=== PATIENT | female | born 1995 | race Two or more races ===

== ENCOUNTER 2018-09-21 10:24 | Day surgery (SDC) | payer OTHER ==
[2018-09-15 15:29] VITALS: BMI 28.5
--- NOTE | 2018-09-21 07:07 | HP ---
History & Physical Update - History History: No Change - Physical Physical: No Change - Assessment Assessment: No Change - Plan Plan: No Change (C/o LBP with LLE radiation.)
[2018-09-21] MEDS ORDERED: CEFAZOLIN 2 GM in DEXTROSE 5%-WATER - 100 ML IVPB ONE (10:35)
[2018-09-21] MEDS ORDERED: oxyCODONE HCL 10 MG SUSTAINED ACTING TABLET PO STA (10:35)
[2018-09-21] MEDS ORDERED: DEXAMETHASONE SOD PHOSPHATE/PF 10 MG/ML SDV ONE (13:48)
[2018-09-21] MEDS ORDERED: MIDAZOLAM HCL 2 MG/2 ML SINGLE DOSE VIAL ONE ×3 (13:48→15:26)
[2018-09-21] MEDS ORDERED: BUPIVACAINE HCL/PF (5 MG/ML) 30 ML VIAL IJ ONE (13:48)
[2018-09-21] MEDS ORDERED: LIDOCAINE 1%/EPI 1:100000 (20 ML MULTI DOSE VIAL) ONE (14:10)
[2018-09-21] MEDS ORDERED: methylPREDNISolone ACET (DEPO) 40 MG/1 ML VIAL ONE (14:10)
[2018-09-21] MEDS ORDERED: THROMBIN (BOVINE) 5,000 UNIT VIAL TP ONE ×2 (14:10→15:35)
[2018-09-21] MEDS ORDERED: ONDANSETRON 4 MG/2 ML VIAL ONE (14:18)
[2018-09-21] MEDS ORDERED: DEXAMETHASONE SOD PHOSPHATE 4 MG/1 ML VIAL ONE (14:18)
[2018-09-21] MEDS ORDERED: ceFAZolin SODIUM 1 GM VIAL ONE (14:18)
[2018-09-21] MEDS ORDERED: oxyCODONE HCL 5 MG TABLET PO PRN ×2 (16:03)
[2018-09-21] MEDS ORDERED: PROMETHAZINE HCL 25 MG/1 ML VIAL IVPUSH PRN (16:03)
[2018-09-21] MEDS ORDERED: ONDANSETRON 4 MG/2 ML VIAL IVPUSH PRN (16:03)
--- NOTE | 2018-09-21 16:12 | OP ---
Operative Note - Note: Operative Date: 09/21/18 Pre-Operative Diagnosis: L4/5 HNP, radiculopathy, stenosis Operation: L4/5 laminectomy, discectomy Post-Operative Diagnosis: Same as Pre-op Surgeon: Cristóbal Miller Automobile Assembly Supervisor: Lance Vivas Anesthesiologist/PROTOCOL MANAGER: Warren Buitrago Anesthesia: Spinal Specimens Removed: L4/5 disc Estimated Blood Loss (mls): 20 Fluid Volume Replaced (mls): 1,000 Operative Report Dictated: Yes
--- NOTE | 2018-09-21 16:13 | SURG ---
Surgery Railway Signal Technician Note Railway Signal Technician: Lance Vivas PA-C Date of Service: 09/21/18 Diagnosis: L4/5 stenosis, herniated nucleus pulposus, radiculopathy Procedure: L4/5 laminectomy, discectomy I was present for the entirety of the operative procedure. For further detail, please refer to operative report. Visit type - Case Type Case Type: Scheduled - New patient This patient is new to me today: Yes Date on this admission: 09/21/18
--- NOTE | 2018-09-21 17:19 | OP ---
DATE OF OPERATION: 09/21/2018 PREOPERATIVE DIAGNOSIS: Spinal stenosis, L4-5. POSTOPERATIVE DIAGNOSIS: Spinal stenosis, L4-5. PROCEDURE PERFORMED: Laminectomy, L4-5. SURGEON: Cristóbal Miller MD HUNTING AND FISHING GUIDE: NIRANJAN Steward ESTIMATED BLOOD LOSS: 50 mL. INTRAVENOUS FLUIDS: Per Anesthesia. ANESTHESIA: Spinal/TLIP block. COMPLICATIONS: None. DISPOSITION: Patient brought to the PACU in stable condition. INDICATION FOR SURGERY: Patient is a 22-year-old female who has been suffering from pain from her back down her legs. X-rays and MRI were completed which showed that she had a herniated disk at L4-5. She had gone through an exhaustive course of treatment which included medications, physical therapy, as well as injections. Unfortunately, her pain continued to persist despite all this. At this point, risks, benefits, and alternatives are discussed, and the patient consented to surgery. DESCRIPTION OF PROCEDURE: Patient was brought to the operating room by the Anesthesia staff after appropriate patient identification was performed. Spinal anesthesia was given. TLIP block was also given. The patient was positioned prone onto the Matty frame with all areas of bony prominence well padded at this time. Two needles were placed into the back to clyde off the L4-5 level. X-ray was taken to confirm this was correct. Needle was removed, and 10 mL of lidocaine with epinephrine was injected into the back. At the time, her back was prepped and draped in a sterile manner. At this point, a timeout was completed. An incision was made from the top of L4 down to the bottom of L5. Dissection was carried down to the fascia. The fascia was then split open at this time, and appropriate retractors were then placed in. A spinal needle was placed onto the L4 lamina to clyde off the L4-5 level. An x-ray was taken to confirm this was correct. Needle was removed, and the microscope was brought in. The L4-5 intraspinal segment was removed. A portion of the L4-L5 spinous processes was removed. A portion of the L4-5 lamina were removed. A portion of the L4-5 segment was removed. The thecal sac was mobilized medially. Disk herniation was noted and was removed at this time. A portion of the inferior and superior facets were removed. By the end of the procedure, the L5 nerve roots appeared to be well decompressed. All bleeding was well controlled at this time. Steroids were placed over the nerve root. FloSeal was placed over that. The fascia was closed with a number 1 Vicryl suture. Subcutaneous tissue was closed with 2-0 Vicryl sutures. Skin was closed with 3-0 Monocryl suture. Dermabond was applied. Steri-Strips were applied. Sterile dressing was applied. Patient was placed supine on the OR bed and brought to the PACU in stable condition. Olivier JORDAN/[id number]
[2018-09-21 17:25] VITALS: TEMP 98.1
[2018-09-21] MEDS ORDERED: oxyCODONE HCL 5 MG TABLET ONE (18:11)
[2018-09-21 19:14] VITALS: BP 108/69; PULSE 87
--- NOTE | 2018-09-25 12:45 | PATH ---
Surgical Pathology Report Patient Name: YOBANI MCLAUGHLIN [facility]. Rec. #: [id number] /Age/Gender: 1995 (Age: 22) / F Account: [id number] Location: [facility] Taken: 09/21/2018 Received: 09/21/2018 Reported: 09/25/2018 Physicians: Cristóbal Miller M.D. Specimen(s) Received L4-5/L5-S,DISC Clinical History Spinal stenosis Final Diagnosis DISC, L4-5, L5-S1, LAMINECTOMY: CARTILAGE WITH DEGENERATIVE CHANGES. Electronically Signed Tamia Mason M.D. Gross Description Received in formalin labeled "disc L4-5, L5-S1," is a 4.0 x 2.7 x 0.4 cm aggregate of rod fragments of fibrocartilaginous tissue. A brewery representative portion is submitted in one cassette. /09/22/2018 saudi09/22/2018
== END 2018-09-21 19:05 | disposition home or self-care (01) ==
LOC: FASU 10:24
PROVIDERS: ATTEND Orthopaedic Surgery Orthopaedic Surgery of the Spine
PROC: 01NB0ZZ Release Lumbar Nerve, Open Approach (ICD-10-PCS; principal; 2018-09-21 15:06)
DX: M48.061 Spinal stenosis, lumbar region without neurogenic claudication (principal)
CPT/HCPCS: 72100-TC-FY; 84703; 88304-TC; 94760